=== PATIENT | female | born 1955 | race Caucasian/White ===

== ENCOUNTER 2017-10-02 17:39 | Emergency (ER) | payer BC ==
[~2017-10-02] VITALS: Ht 154.9 cm; Wt 70.0 kg
[2017-10-02] MEDS ORDERED: METF10002 PO (18:14)
[2017-10-02 21:04] LABS: PROTHROMBIN TIME 10.2 sec (9.4-11.6)
[2017-10-02 21:05] LABS: BASOPHILS % 0.4 % (0.0-2.0); EOSINOPHILS % 1.2 % (0.0-5.0); HEMATOCRIT. 35.8 % (36.0-48.0); HEMOGLOBIN. 11.9 g/dL (12.0-16.0); LYMPHOCYTES % 19.5 % (20.0-50.0); MEAN CORPUSCULAR HEMOGLOBIN 29.6 pg (28.0-32.0); MEAN CORPUSCULAR VOLUME 88.7 fL (81.0-99.0); MEAN PLATELET VOLUME 8.8 fl (7.4-10.4); MONOCYTES % 7.9 % (2.0-8.0); PLATELET 287 x1000/uL (130-400); RED BLOOD CELL COUNT 4.04 mill/uL (4.2-5.4); RED CELL DISTRIBUTION WIDTH 13.3 % (11.6-14.6)
[2017-10-02 21:07] LABS: CHLORIDE 103 mEq/L (98-107)
[2017-10-02 21:17] LABS: CLARITY URINE CLEAR (CLEAR); COLOR URINE YELLOW (YELLOW); KETONES URINE TRACE (NEGATIVE); LEUKOCYTE ESTERASE URINE 1+ (NEGATIVE); NITRITE URINE NEGATIVE (NEGATIVE); OCCULT BLOOD URINE 2+ (NEGATIVE); PROTEIN URINE NEGATIVE (NEGATIVE); SPECIFIC GRAVITY URINE 1.009 (1.005-1.030); UROBILINOGEN URINE 0.2 E.U./dL (0.2-1.0)
[2017-10-02] MEDS ORDERED: CEFTRIAXONE 1 G PREMIX 50 ML IV ONE (22:00)
[2017-10-02 23:14] VITALS: BP 117/83
== END 2017-10-02 23:25 | disposition home or self-care (01) ==
LOC: ER 21:18
DX: N30.90 Cystitis, unspecified without hematuria (principal); N20.0 Calculus of kidney; D64.9 Anemia, unspecified; K42.9 Umbilical hernia without obstruction or gangrene; E11.9 Type 2 diabetes mellitus without complications; Z90.49 Acquired absence of other specified parts of digestive tract; Z79.84 Long term (current) use of oral hypoglycemic drugs; Z88.5 Allergy status to narcotic agent
CPT/HCPCS: 36415; 74176; 80053; 81003; 83605; 83690; 85025; 85610; 93005; 96365; 99285; J0696; Z7610

== ENCOUNTER 2018-11-13 06:50 | Emergency (ER) | payer BC, OTHER ==
[~2018-11-13] VITALS: Ht 154.9 cm; Wt 56.0 kg
[~2018-11-13 06:50] MED LIST: METF-416 PO
[2018-11-13] MEDS ORDERED: IBUPROFEN 600MG TABLET PO ONE (08:00)
[2018-11-13 08:28] LABS: BASOPHILS % 0.3 % (0.0-2.0); EOSINOPHILS % 0.2 % (0.0-5.0); HEMATOCRIT. 38.2 % (36.0-48.0); HEMOGLOBIN. 11.2 g/dL (12.0-16.0); LYMPHOCYTES % 9.2 % (20.0-50.0); MEAN CORPUSCULAR VOLUME 88.8 fL (81.0-99.0); MEAN PLATELET VOLUME 7.9 fl (7.4-10.4); MONOCYTES % 5.3 % (2.0-8.0); PLATELET 281 x1000/uL (130-400); RED CELL DISTRIBUTION WIDTH 13.7 % (11.6-14.6)
[2018-11-13 09:59] LABS: CLARITY URINE CLOUDY (CLEAR); COLOR URINE BLOODY (YELLOW); KETONES URINE 2+ (NEGATIVE); LEUKOCYTE ESTERASE URINE NEGATIVE (NEGATIVE); NITRITE URINE NEGATIVE (NEGATIVE); OCCULT BLOOD URINE 3+ (NEGATIVE); PH URINE 6.5 (4.5-8.0); PROTEIN URINE 3+ (NEGATIVE); SPECIFIC GRAVITY URINE 1.027 (1.005-1.030); UROBILINOGEN URINE 0.2 E.U./dL (0.2-1.0)
[2018-11-13 10:30] VITALS: BP 135/50
== END 2018-11-13 17:54 | disposition home or self-care (01) ==
LOC: ER 06:50
DX: N93.8 Other specified abnormal uterine and vaginal bleeding (principal); R10.2 Pelvic and perineal pain; E11.9 Type 2 diabetes mellitus without complications; Z88.5 Allergy status to narcotic agent; Z79.899 Other long term (current) drug therapy; Z98.890 Other specified postprocedural states
CPT/HCPCS: 36415; 76830; 76856; 99284

== ENCOUNTER 2019-06-07 14:38 | Emergency (ER) | payer OTHER ==
[~2019-06-07] VITALS: Ht 149.9 cm; Wt 61.0 kg
[2019-06-07 18:41] VITALS: BP 128/68
== END 2019-06-07 22:10 | disposition left against medical advice (07) ==
LOC: ER 14:38
DX: R10.9 Unspecified abdominal pain (principal); Z53.21 Procedure and treatment not carried out due to patient leaving prior to being seen by health care provider

== ENCOUNTER 2019-06-24 20:58 | Emergency (ER) | payer OTHER ==
[~2019-06-24] VITALS: Ht 157.5 cm; Wt 59.0 kg
[2019-06-24] MEDS ORDERED: ONDANSETRON HCL 4MG/2ML INJ IV STA (23:24)
[2019-06-24] MEDS ORDERED: SODIUM CHLORIDE 0.9% 1,000 ML IV ONE (23:24)
[2019-06-24 23:43] LABS: BASOPHILS % 0.5 % (0.0-2.0); CLARITY URINE CLEAR (CLEAR); COLOR URINE YELLOW (YELLOW); EOSINOPHILS % 0.8 % (0.0-5.0); HEMATOCRIT. 35.3 % (36.0-48.0); HEMOGLOBIN. 11.6 g/dL (12.0-16.0); KETONES URINE NEGATIVE (NEGATIVE); LEUKOCYTE ESTERASE URINE 1+ (NEGATIVE); LYMPHOCYTES % 16.1 % (20.0-50.0); MEAN CORPUSCULAR HEMOGLOBIN 28.2 pg (28.0-32.0); MEAN PLATELET VOLUME 8.7 fl (7.4-10.4); MONOCYTES % 7.5 % (2.0-8.0); NEUTROPHILS % 75.1 % (40.0-76.0); NITRITE URINE NEGATIVE (NEGATIVE); OCCULT BLOOD URINE 1+ (NEGATIVE); PH URINE 5.5 (4.5-8.0); PLATELET 281 x1000/uL (130-400); PROTEIN URINE TRACE (NEGATIVE); RED BLOOD CELL COUNT 4.11 mill/uL (4.2-5.4); RED CELL DISTRIBUTION WIDTH 15.1 % (11.6-14.6); SPECIFIC GRAVITY URINE 1.015 (1.005-1.030); UROBILINOGEN URINE 0.2 E.U./dL (0.2-1.0)
[2019-06-24 23:44] LABS: CHLORIDE 105 mEq/L (98-107)
[2019-06-24 23:45] LABS: INR 0.9; PROTHROMBIN TIME 9.4 sec (9.6-11.0)
[2019-06-25] MEDS ORDERED: KETOROLAC 15MG/ML VIAL IV ONE (02:15)
[2019-06-25 03:54] VITALS: BP 104/56
== END 2019-06-25 04:03 | disposition home or self-care (01) ==
LOC: ER 20:58
DX: N39.0 Urinary tract infection, site not specified (principal); R11.2 Nausea with vomiting, unspecified; E11.9 Type 2 diabetes mellitus without complications; I10 Essential (primary) hypertension; Z90.49 Acquired absence of other specified parts of digestive tract; Z79.84 Long term (current) use of oral hypoglycemic drugs; Z88.5 Allergy status to narcotic agent; Z98.890 Other specified postprocedural states
CPT/HCPCS: 36415; 74176; 76705; 80053; 81003; 83690; 85025; 85610; 87077; 87086; 87186; 96361; 96374; 99284; J2405; J7030